=== PATIENT | male | born 1990 | race Hispanic/Latino ===

== ENCOUNTER 2016-09-05 21:54 | Observation (INO) | payer MEDICAID ==
[~2016-09-05] VITALS: Ht 185.4 cm; Wt 82.7 kg
--- NOTE | 2016-09-05 21:57 | ED.REPORT ---
HPI-Psychiatric Illness Date of Service Sep 05, 2016 ED Provider: Dr. Marcell Ramirez M.D. The patient is a 24 year old male with a history of psychosis and seizures who presents to the ED via EMS after being found confused at the train station just prior to arrival. The patient admits to taking "too many drugs" tonight, including Zyprexa and Vicodin. He has now reportedly lost all of his psychiatric medications. EMS found the patient with a BP of 160/100 and otherwise normal vital signs. The patient requests to be taken to a psychiatric hospital or "his doctor," who he cannot name. He is from [place] but does not know which town. The patient denies shortness of breath, auditory hallucinations, or other somatic symptoms. He has had similar episodes of confusion in the past. History is limited due to patient's confusion. Nursing Notes Stated Complaint: CONFUSION Chief Complaint: Psychiatric Complaint Nursing Notes Reviewed: Yes Allergies: Coded Allergies: No Known Allergies (Unverified , 09/05/16) General Time Seen by MD: 21:57 Chief Complaint Confused Hx Obtained From: Patient, EMS Unable to Obtain Hx: Patient condition, Mental status Arrived By: Ambulance Onset Occurred: Onset unknown (Found just prior to arrival) Symptom Duration: Since onset Severity: Current: No pain currently Severity: Maximum: No pain Pertinent Negative: Relieved by nothing Immunizations: Unknown Similar Sx Previous: Yes Risk-Psychiatric Illness Suicide Risk Stratification RF Statements: Risk factors reviewed Past Medical History Past Medical History Seizures Past Surgical History None reported Smoking History Light Tobacco Smoker Ambulatory Status Independent Review of Systems Unable to Obtain ROS Patient condition, Mental status Physical Exam Initial Vital Signs Vital Signs (First) Date Time Temp Pulse Resp B/P Pulse Ox O2 Delivery O2 Flow Rate FiO2 09/05/16 22:12 36.8 73 16 137/92 100 Room Air Initial VS: Reviewed ENT: Conjunctiva normal, No scleral icterus Neck: Supple, Full range of motion Respiratory: Breath sounds normal, Clear to auscultation, No respiratory distress Cardiovascular: Regular rate & rhythm, Heart sounds normal Skin: Warm, Dry, No cyanosis General/Constitutional: Awake, Alert, No acute distress Alertness: Positive: Confused Neurologic: Speech NL, No motor deficits, No sensory deficits Mental Status: Positive: Confused Psychiatric: Affect NL, Mood NL, No hallucinations Head / Eyes: Atraumatic, Normocephalic, PERRL (4mm bilaterally), EOMI Interpretation & Diagnostics URINE DRUG SCREEN: + Marijuana Otherwise Negative Lab Results Interpretation Result Diagram: 09/05/16223409/05/162234 Test 09/05/16 22:35 White Blood Count 5.6th/mm3 (3.8-10.1) Red Blood Count 4.76mil/mm3 (4.40-5.80) Hemoglobin 14.5g/dL (13.8-17.2) Hematocrit 42.9% (41.0-50.0) Mean Corpuscular Volume 90.1fL (81-100) Mean Corpuscular Hemoglobin 30.5pg (27.0-35.0) Mean Corpuscular Hemoglobin Concent 33.8% (32.0-37.0) Red Cell Distribution Width 12.6% (12.3-15.4) Platelet Count 246bil/L (150-400) Sodium Level 140mEq/L (134-144) Potassium Level 4.2mEq/L (3.5-5.2) Chloride Level 101mEq/L (97-108) Carbon Dioxide Level 24mmol/L (18-29) Blood Urea Nitrogen 18mg/dL (6-20) Creatinine 0.92mg/dL (0.76-1.27) Estimat Glomerular Filtration Rate 108mL/min (>59) Glucose Level 109mg/dL (60-99) Calcium Level 9.1mg/dL (8.5-10.1) Total Bilirubin 0.9mg/dL (0.0-1.2) Aspartate Amino Transf (AST/SGOT) 22U/L (0-50) Alanine Aminotransferase (ALT/SGPT) 15U/L (0-44) Alkaline Phosphatase 102U/L (25-150) Total Protein 7.2g/dL (6.4-8.4) Albumin 4.7g/dL (3.4-5.0) Hold [place] Top Tube Received (Received) Salicylates Level < 3.0ug/mL (30-250) Acetaminophen Level < 15.0ug/mL Rx (10-25) CT Head Interpretation CONCLUSION: Mild soft tissue swelling overlying the inferior right frontal bone. No skull fracture or acute intracranial hemorrhage. Report transmitted to the ED by radiologist Henok Rodgers M.D. at 09/05/16 - 10:58:16 PM PDT Study: Head CT no contrast Interpretation / Wet Read by: Interpret - Radiologist Re-Eval/Medical Decision Med Decision/Clinical Course 23-year-old presents initially in a confusional state it appears consistent with a postictal confusion. However he is overtly psychotic as well. He states an expectation of being admitted to the psychiatric hospital, and provided "cookies". He is here voluntarily and will be evaluated this morning by director of social services. Provided with Keppra 1 g orally to be continued. Provided with Risperdal for his apparent auditory hallucinations. Signed out at [address] Kaminski Re-Evaluation/Progress : Time of Eval: 01:45 Patient Status: Condition improved Re-Evaluation/Progress Note: Discussed with patient CT and lab results, diagnosis, and plan for transfer of care to Dr. Kaminski at change of shift for Social Work evaluation in the morning. He agrees with plan for care and all questions were addressed. Counseled Regarding: Diagnosis, Lab results Discharge & Departure Shift Change Sign-Out Patient Care Transferred: Yes (Dr. Kaminski) Discussed Complaint(s): Yes Laboratory Evaluation: Lab evaluation discussed Imaging Studies: Imaging discussed Response to Therapy: Improved Impression: Primary Impression: Psychosis Psychosis type: unspecified psychosis type Qualified Code: F29 - Unspecified psychosis not due to a substance or known physiological condition Additional Impression: Post-ictal confusion Care Transferred to: Dr. Kaminski Care Transferred at: 06:00 Yann Attestation Portions of this note were transcribed by Rose Mary Toscano. I, Dr. Ramirez, personally performed the history, physical exam, and medical decision-making; I reviewed and confirmed the accuracy of the information in the transcribed note. Signed by: Yann Vargas, 09/06/2016, 05:57 Marcell Ramirez MD Sep 05, 2016 21:57 ROSE MARY TOSCANO Sep 05, 2016 22:06
[2016-09-05 22:12] VITALS: BP 137/92; PULSE 73; RESP 16; O2SAT 100
[2016-09-05 22:53] LABS: Mean Corpuscular Hemoglobin 30.5 pg (27.0-35.0); Mean Corpuscular Volume 90.1 fL (81-100)
[2016-09-06] VITALS (7 sets, daily range): BP systolic 99–119; BP diastolic 46–63; PULSE 66–83; RESP 16–20; O2SAT 95–99
[2016-09-06] MEDS ORDERED: levETIRAcetam 500 mg Tablet PO ONE ×2 (01:55→07:55)
[2016-09-06] MEDS ORDERED: risperiDONE 1 mg Tablet PO ONE (01:55)
--- NOTE | 2016-09-06 06:12 | DRSVH ---
PROCEDURE: CT BRAIN WITHOUT CONTRAST ([id number]) INDICATIONS: 24-year-old male with headaches and possible seizure after head trauma. TECHNIQUE: Noncontrast 4.5 mm thick angled axial sections acquired from the foramen magnum to the vertex, with c oronal reformats. COMPARISON: None. FINDINGS: Preliminary interpretation rendered by [facility]. Image quality: Excellent. CSF spaces: Basal cisterns are patent. No extra-axial fluid collections. Ventricles are normal in size and shape. Brain: No midline shift. No intracranial masses or hemorrhage. Ruvalcaba-white matter interface is norm al. Skull and face: Calvarium and visualized facial bones are intact, without suspicious lesions. There is localized right forehead scalp soft tissue swelling. Sinuses: Visualized sinuses and mastoids are clear, except for posterior right maxillary sinus small mucous retention cyst or polyp. IMPRESSION: No acute intracranial abnormalities. Small right forehead scalp hematoma. No significant discrepancy with preliminary [facility] report. Dictated by: Indio Mascorro M.D. on 09/06/2016 at 6:07 Approved by: Indio Mascorro M.D. on 09/06/2016 at 6:11
[2016-09-06] MEDS ORDERED: levETIRAcetam 500 mg Tablet PO SCH (08:30)
[2016-09-06] MEDS: 0.9% Sodium Chloride 1,000 ML IV SCH (16:06)
[2016-09-06] MEDS ORDERED: Alum-Mag Hydrox-Simeth 30 mL Suspension PO PRN (16:10)
[2016-09-06] MEDS ORDERED: Ondansetron 2 mg/mL 2 mL Inj IVPUSH PRN (16:10)
[2016-09-06] MEDS ORDERED: Polyethylene Glycol (PEG) 17 Gm Powder PO PRN (16:10)
--- NOTE | 2016-09-06 18:21 | PCM.HPMED ---
Subjective Date of Service Sep 06, 2016 Primary Provider: Admitting Physician: Marcell Carver MD Primary Care Physician: Luke Attending Physician: Marcell Carver MD Admit Status: Admit to [place] Team Chief Complaint: Confusion History of Present Illness: The patient is a 26-year-old male who has a history of a psychiatric illness of some sort, he has been unable to reveal what his diagnosis is, left his family in [place] to travel to [place] for a new job. His family in [place] was perfectly okay with this plan. The patient set off on a train to [place], [place] and was planning to fly from the [employer] airport in [place], [place] to [place]. However, patient apparently was found to be behaving in a bizarre fashion at the [place] [facility].. Patient was therefore brought to [facility] where he was evaluated and then subsequently released. 2 days later patient was found at a train station in [place]. Patient was found confused at the train station and was brought to [facility] emergency room. Patient was evaluated by Dr. Marcell Ramirez. Patient admitted to "too many drugs" tonight. Which included Zyprexa and Vicodin. Patient reported that he lost all the psychiatric medications the patient was found to have a blood pressure 160/100 by EMS services. The patient requested to be taken to a psychiatric hospital or "his doctor" who he was unable to name. He was from [place] but did not know what city he was from. Patient reported similar confusion in the past. Patient is deemed to be unsafe to be discharged from the emergency room and is being brought in under observation to the hospital service for further evaluation and treatment Review of Systems: The patient would not answer any of my questions. He did follow commands however again did not answer any questions verbally and therefore review of systems could not be obtained. Allergies Coded Allergies: No Known Allergies (Unverified , 09/05/16) Home Medications Patient has apparently taken Zyprexa and Vicodin in the past according to the emergency room records. PMH Patient is nonverbal to me however from the emergency room records it appears that the patient has a psychiatric disorder diagnosis and/or type is unknown. Surgical History I am unable to obtain surgical history from the patient. This is due to the patient being nonverbal during my exam. Family History I am unable to obtain a family history from this patient is a patient is nonverbal. Social History Hx Substance Use: Yes (marijuana) Smoking Status: Light Tobacco Smoker Living Arrangement: Alone Exam Vital Signs Vital Sign - Last Date Time Temp Pulse Resp B/P Pulse Ox O2 Delivery O2 Flow Rate FiO2 09/06/16 16:50 36.8 09/06/16 15:13 75 20 109/48 98 Room Air Intake and Output 09/05/16 09/05/16 09/06/16 Cumulative From/Thru 15:00 23:00 07:00 09/05/16 21:57 - 09/06/16 02:47 Intake Total 100 ml 100 ml Balance 100 ml 100 ml Intake Oral 100 ml 100 ml Exam General: Patient is nonverbal however he does follow simple commands. He is lying in the position, he is cooperative. HEENT: Head is atraumatic and normocephalic. Eyes: Pupils are equally round, small to pinpoint, however are reactive to light and accommodation. Extraocular muscles are intact. Sclera are white, anicteric. Subconjunctival mucosa is pink. Ears and nose are unremarkable. Oropharynx: There are no mucosal lesions, there is no thrush, there is no pharyngitis. Neck: Is supple, there are no nodes, or masses or tenderness. Chest: Is clear to auscultation and percussion. There are no rales, rhonchi, wheezes or rubs. Heart: Rate, rhythm is regular. There is no murmur, rub or gallop. Abdomen: Good bowel sounds are present. Abdomen is soft, nontender, no organomegaly or masses were appreciated. Extremities: Are symmetrical and well perfused. There is no edema, there is no cellulitis, no rash. Neurologic: The patient is minimally responsive and is not verbal to me. He is somnolent. However, he is cooperative on exam there are no focal neurological deficits noted. Cranial nerves II through XII are intact. There are no sensory or motor deficits noted. Psychiatric: Patients mood is calm and shows no sign of agitation. Genital: Deferred Rectal: Deferred Lab and Diagnostics Result Diagram: 09/05/16223409/05/162234 X-Rays, CTs and MRIs PROCEDURE: CT BRAIN WITHOUT CONTRAST ([id number]) INDICATIONS: 24-year-old male with headaches and possible seizure after head trauma. TECHNIQUE: Noncontrast 4.5 mm thick angled axial sections acquired from the foramen magnum to the vertex, with coronal reformats. COMPARISON: None. FINDINGS: Preliminary interpretation rendered by [facility]. Image quality: Excellent. CSF spaces: Basal cisterns are patent. No extra-axial fluid collections. Ventricles are normal in size and shape. Brain: No midline shift. No intracranial masses or hemorrhage. Ru[place]caba-white matter interface is normal. Skull and face: Calvarium and visualized facial bones are intact, without suspicious lesions. There is localized right forehead scalp soft tissue swelling. Sinuses: Visualized sinuses and mastoids are clear, except for posterior right maxillary sinus small mucous retention cyst or polyp. IMPRESSION: No acute intracranial abnormalities. Small right forehead scalp hematoma. No significant discrepancy with preliminary [facility] report. Dictated by: Indio Mascorro M.D. on 09/06/2016 at 6:07 Approved by: Indio Mascorro M.D. on 09/06/2016 at 6:11 Assessment & Plan The patient is a 26-year-old male who has a history of a psychiatric illness of some sort, he has been unable to reveal what his diagnosis is, left his family in [place] to travel to [place] for a new job. His family in [place] was perfectly okay with this plan. The patient set off on a train to [place], [place] and was planning to fly from the [place] airport in [place], [place] to [place]. However, patient apparently was found to be behaving in a bizarre fashion at the [place] [facility].. Patient was therefore brought to [facility] where he was evaluated and then subsequently released. 2 days later patient was found at a train station in [place]. Patient was found confused at the train station and was brought to [facility] emergency room. Patient was evaluated by Dr. Marcell Ramirez. Patient admitted to "too many drugs" tonight. Which included Zyprexa and Vicodin. Patient reported that he lost all the psychiatric medications the patient was found to have a blood pressure 160/100 by EMS services. The patient requested to be taken to a psychiatric hospital or "his doctor" who he was unable to name. He was from [place] but did not know what city he was from. Patient reported similar confusion in the past. Patient is deemed to be unsafe to be discharged from the emergency room and is being brought in under observation to the hospital service for further evaluation and treatment. # Acute encephalopathy, present at time of admission. Active - According to the emergency room staff contacted the patient's family in [place] the patient baseline behavior is nothing like it is now and this behavior that is exhibiting now is all new. The patient does have a history of psychiatric disorder and takes Zyprexa but apparently is well controlled and they confirmed that he was headed to [place] for work. - Rule out herpes simplex encephalitis. I have asked the emergency room physician to perform a lumbar puncture. - Rule out toxic metabolic encephalopathy - Rule out side effects medications and/or drugs that the patient took prior to admission. However, according to Dr. Marcell Raimrez's note the urine drug screen is only positive for cannabinoids. We will repeat this. - Rule out other # History of psychiatric disorder, present at time of admission. Active - Patient reportedly takes Zyprexa at home. However, related to the emergency room staff that he has been out of his home medications for quite some time. - We will obtain psychiatric consult. Dr. Marc Kaminski apparently spoke to the psychiatrist on-call and psychiatric consult is pending. # Possible history of seizure disorder, present at the time of admission. Active - Patient was given Keppra 1000 mg IV loading dose in the emergency room followed by a 500 mg by mouth dose. - We will continue Keppra 500 mg by mouth twice a day - We will check an MRI of the brain - We will check an EEG of the brain Disposition: As definitive diagnosis is uncertain for this patient will be brought in under observation for now. Pain Evaluation: Adequate Pain Control GI Prophylaxis: Not indicated VTE Prophylaxis: Sub-Q Enoxaparin Resuscitation Status: CPR: Attempt Resuscitation Marcell Carver MD Sep 06, 2016 18:21
--- NOTE | 2016-09-06 20:25 | NUR ---
Admit Pt arrived in room on stretcher from ED with all belongings. Pt alert and oriented, walked from stretcher to bed. Pt sensitive to light, complaining of headache. Tylenol given with good results, pain at 10 down to 5. Pt refused Lovenox injection, was hungry and had a snack. Initially refused fluids, but after snack complied. Pt pleasant and generally cooperative.
[2016-09-06] MEDS: levETIRAcetam 500 mg Tablet PO SCH (20:31)
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
--- NOTE | 2016-09-06 21:45 | NUR ---
Tele Tele monitor showed slight ST elevation. Pt denied any chest pain or SOB, alert and oriented. Vitals within normal range, no s/s of discomfort. Paged night hospitalist with information, will continue to monitor.
[2016-09-07] VITALS (7 sets, daily range): BP systolic 108–141; BP diastolic 66–103; PULSE 56–77; RESP 16–22; O2SAT 89–98
[2016-09-07] MEDS: 0.9% Sodium Chloride 1,000 ML IV SCH ×4 (02:06→15:28)
[2016-09-07 06:15] LABS: BASOPHILS % (AUTO) 0.4 % (0-3); EOSINOPHILS % (AUTO) 9.6 % (0-5); MONOCYTES % (AUTO) 8.8 % (4-12); Mean Corpuscular Hemoglobin 30.3 pg (27.0-35.0); Mean Corpuscular Volume 90.7 fL (81-100); Platelet Count 230 bil/L (150-400)
--- NOTE | 2016-09-07 06:29 | NUR ---
activity Pt slept well through the night, was alert when awakened for BP. Awoke hungry this am, pleasant and cooperative. Family will be up from [place] this am. They are hoping to take him home. Sister called to discuss pt mental issues, she wanted the to know that he has been paranoid and fearful at home. Will continue to observe behaviors. No issues at this time.
[2016-09-07 06:37] LABS: Magnesium 1.7 mg/dL (1.6-2.6)
[2016-09-07] MEDS: levETIRAcetam 500 mg Tablet PO SCH ×2 (08:56→20:13)
--- NOTE | 2016-09-07 11:33 | NUR ---
Social Work: Screening / Readiness for d/c Data: Pt is a 26 y/o male admitted for acute delerium. Pt's PCP is not listed, pt's insurance is listed as self pay. EMR reviewed, pt discussed in rounds. MD states Psych will see pt again today and that pt may be ready medically for d/c tomorrow. Per Psych note on 09/06, pt may require a DMHP on day of d/c. MARKETING SUPPORT COORDINATOR will continue to follow. Assessment: Pt with hx of psych. Plan: MD states pt likely ready for d/c tomorrow, MARKETING SUPPORT COORDINATOR will continue to follow regarding need for DMHP at d/c. MARKETING SUPPORT COORDINATOR will continue to follow. MUKESH Moseley
--- NOTE | 2016-09-07 11:35 | NUR ---
ST received order for a swallow evaluation at time of pt admit. However, MD gave verbal order to this PRINCIPAL INVESTIGATOR to cancel the order. Please reorder if the pt develops new or worsening symptoms.
--- NOTE | 2016-09-07 13:04 | DRSVH ---
PROCEDURE: MRI SEIZURE BRAIN WITH AND WITHOUT CONTRAST ([id number]) INDICATIONS: Encephalopathy/Seizure TECHNIQUE: Noncontrast axial T1 spin echo, axial T2 fast spin echo, sagittal and axial FLAIR, axial gradient ech o, axial diffusion and ADC, coronal thin-slice T2 FSE through the brain. Optional contrast, followed by axial and coronal 3D VIBE or T1 spin echo with fat saturation sequences through the brain. COMPARISON: [facility], CT, CT BRAIN WO CON, 09/05/2016, 22:44. FINDINGS: Image quality: Partially degraded by motion artifact. CSF spaces: Ventricles are normal in size and shape. Basal cisterns are patent. No extra-axial flu id collections. Brain: No intracranial bleeds or mass effects. No abnormal intracranial enhancement. Ruvalcaba-white ma tter interface appears intact. Diffusion weighted images demonstrate no acute ischemic insults. Bra instem appear normal. Normal intravascular flow voids are present. The hippocampal regions appear n ormal and symmetric in morphology. Skull and face: Calvarial marrow signal is normal. Orbits appear normal. Sinuses: Mild maxillary sinus mucosal thickening is present bilaterally. Sinuses and mastoids are ot herwise clear. IMPRESSION: No acute process. No explanation for seizure. Dictated by: Eduardo Medina M.D. on 09/07/2016 at 12:02 Approved by: Eduardo Medina M.D. on 09/07/2016 at 12:03
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
--- NOTE | 2016-09-07 15:23 | NUR ---
Mentation Admitted with delirium. Confusion at times otherwise oriented and appropriate this shift. Family present this AM and met with providers on care team. Comfortable with plan of care at this time. Steady on feet and using Br independently.
[2016-09-07] MEDS ORDERED: OLAN2.5T3 PO (16:50)
[2016-09-07] MEDS ORDERED: KEP500TA PO (16:50)
[2016-09-07] MEDS ORDERED: HAL05 PO (16:50)
[2016-09-07] MEDS ORDERED: AMPH30CA5 PO (16:50)
[2016-09-07] MEDS ORDERED: MULT1CAP33 PO (16:50)
[2016-09-07] MEDS ORDERED: ALPRAZolam 0.5 mg Tablet PO PRN (17:15)
--- NOTE | 2016-09-07 18:29 | NUR ---
med rec med rec completed using pt recall however pt unsure of dosages and hasn't taken any in quite awhile.
--- NOTE | 2016-09-07 23:25 | NUR ---
activity Pt alert and oriented, cooperative, walked about the facility staying on this floor with no issues. Remained in room after, contacted some friends by phone. Resting comfortably in bed for the rest of evening. Will continue to monitor.
[2016-09-08] MEDS: Sodium Chloride LOK Flush 10 mL Syringe IVFLUSH SCH ×3 (00:40→16:30)
[2016-09-08 06:15] VITALS: BP 105/65; PULSE 68; RESP 20; O2SAT 97
[2016-09-08] MEDS: levETIRAcetam 500 mg Tablet PO SCH ×2 (07:50→20:39)
--- NOTE | 2016-09-08 13:30 | NUR ---
Mentation NOC RN reporting that overnight patient expressed that he had been traveling to [place] before hospitalization. Pt was sleepy at this AM and gave an incorrect date (1982) to the instructor adjunct pharmacy technician. Pt also asked to make a long distance phone call and was allowed to call from the hallway phones. After approx 20 mins the patient was observed doing more dialing than talking and was asked to stop making calls at that time.
[2016-09-08 15:25] VITALS: BP 129/81; PULSE 67; RESP 18; O2SAT 98
--- NOTE | 2016-09-08 16:17 | NUR ---
Social Work-readiness for discharge: data:EMR Reviewed. Pt is on day 2 of hospitalization for acute delerium per H&P. Pt is not medically stable for discharge anticipate tomorrow. Psychiatry has seen pt today and states pt does not qualify for DMHP or voluntary placement. Psychiatry states pt is cleared to go home. spoke with sister who is planning on flying up likely tomorrow to pick pt up to take him back home. SW will continue to follow. Assessment:pt who is independent at baseline. Plan:Pt to likely discharge home with sister when medically tsable. Psychiatry does not feel that pt qualifies for DMHP or voluntary placement. SW will continue to follow. MUKESH Hoffman
--- NOTE | 2016-09-08 17:20 | NUR ---
Cedricvenu Pt requesting to leave AMA and is oriented at this time. Pepito returned from safe. Patient then talked with his sister over the phone multiple times. When this RN asked about his AMA status the patient pulled out his own IV "because it hurt" and "I pulled it out in the shower" while informing me that "if they find me a ticket tonight I will go but if it isn't until tomorrow that I will leave then."
[2016-09-08 20:36] VITALS: BP 117/80; PULSE 76; RESP 16; O2SAT 97
--- NOTE | 2016-09-08 22:57 | PCM.PNPSY ---
Subjective Date of Service Sep 08, 2016 Subjective Per nursing staff, patient still somewhat disoriented this morning and pressing numbers on phone purposelessly. This afternoon, patient more alert, but still has somewhat euphoric expression on his face. He reports that his is 1990. He states that he is in a hospital near [place]. He reports that other than a bad headache, he feels fine today. He reports having 5 brothers and 4 sisters and a daughter, Carla, age 6. He stated that the hallucinations had resolved. He reported that he did not like the olanzapine or haloperidol that he had been on and did not want anything similar. He declined inpatient psychiatric treatment. He indicated that he planned to return to [place] with family and then potentially go to [place] for fishing as he had previously stated. Sleep: good Appetite: good Suicidal and homicidal ideation: denies Auditory hallucinations: denies Visual hallucinations: denies Other Psychotic Symptoms: mild thought disorganization Current Medications Current Medications Alprazolam 0.5 mg TID PRN PO Last administered on 09/08/16 14:10; Admin Dose 0.5 MG; Start 09/07/16 at 17:15 Cyanocobalamin 1,000 mcg DAILY PO Last administered on 09/08/16 07:50; Admin Dose 1,000 MCG; Start 09/07/16 at 08:30 Folic Acid 1 mg DAILY PO Last administered on 09/08/16 07:50; Admin Dose 1 MG; Start 09/07/16 at 08:30 Multivitamins/ Minerals Therapeutic 1 tablet DAILY PO Last administered on 07:50; Admin Dose 1 TABLET; Start 09/07/16 at 08:30 Sodium Chloride 10 ml LAUREANO IVFLUSH Last administered on 09/08/16 00:40; Admin Dose 10 ML; Start 09/08/16 at 00:30 Thiamine HCl 100 mg DAILY PO Last administered on 09/08/16 07:50; Admin Dose 100 MG; Start 09/07/16 at 08:30 Mental Status Exam Vital Signs Vital Signs Date Time Temp Pulse Resp B/P Pulse Ox O2 Delivery O2 Flow Rate FiO2 09/08/16 20:36 36.6 76 16 117/80 97 Room Air 09/08/16 15:25 36.9 67 18 129/81 98 Room Air Appearance: Neat/well groomed Attitude: Pleasant, Cooperative Behavior: Other (smiling almost continuously) Affect: Other (inappropriately bright) Mood: Euthymic (to almost), Euphoric (at times) Thought Process/Associations: Goal Directed Speech Production: Normal Speech Rate: Normal Speech Articulation: Normal Thought Content: Appropriate Danger to Self/Suicidal Ideati: None Danger to Others: None Hallucinations: Auditory (Denies), Visual (Denies) Consciousness: Alert Orientation: Person, Place, Date, Situation Memory: Grossly Intact, Nursing Home Memory Estimate Intellectual Function: Average Basis for IQ estimate: Word use/vocabulary, Educational history Attention/Concentration & Cogn: Impaired Cognitive Testing Method: Serial computations, Spelling forward & backward Insight: Limited Judgement: Poor Result Diagram: 09/07/1652909/07/16529 Mental Health Plan The patient is a 26-year-old male with a reported history of substance use who presents with altered mental status, apparently evolving over the last couple of days prior to admission. Yesterday, the patient was unable to answer questions in a meaningful way. Today he is able to participate better with the interview but is presenting with significant memory loss and inability to remember such things as the number of brothers and sisters he has, that he has a daughter, the year, the president, etc. He also presents with a history of paranoia per family and her self report of auditory hallucinations this morning per the patient. The family notes a decrease overall in his paranoia which is unusual for the patient. The patient adamantly denies using "Sherm" or other forms of adulterated marijuana or tobacco. He denies other substance use. The patient declined the lumbar puncture and will defer to medical whether this is required for diagnostic purposes. The MRI was essentially normal, but the EEG is still pending. B12 and folate levels are also still pending. The patient is currently denying homicidal or suicidal ideation, is oriented, and is declining antipsychotic/psychotropic medication and psychiatric admission. He does not appear to meet criteria at the time of assessment this afternoon at approximately 4pm. [place] Y[place] I. 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 Marijuana use disorder Methamphetamine use disorder, in early remission, by patient report. [place] II. Deferred. [place] III. History of seizure disorder following closed head injury. Delirium of unknown origin/toxic encephalopathy. [place] IV. Unknown. [place] V. Global Assessment of Functioning 40. Treatments 1. The patient has been admitted to the medical service for assessment and treatment. 2. MRI of the brain and EEG have both been ordered, MRI results unremarkable. 3. B12 and folate labs drawn and pending. 4. TSH within normal limits. 5. The patient declined lumbar puncture yesterday. No acute findings on MRI. 6. The patient has been already placed on vitamin replacement therapy. 7. The patient was placed on Keppra 500 mg twice daily for seizure prophylaxis. 8. The patient is currently declining psychotropic medications; however, he has accepted alprazolam although longer acting agent such as clonazepam may be more helpful 9. At present, the patient does not appear to meet criteria for referral to [facility] and is agreeing to stay overnight and coordinate return to [place] with family. Should the patient's behavior change, [facility] should be contacted regarding DMHP referral given his bizarre behavior prior to admission and his limited current insight. 10. The patient is currently declining psychiatric treatment or medications and appears to be clearing cognitively. 11. Appreciate the opportunity to consult on this patient, please contact psychiatry for further questions. James Ivan MD Sep 08, 2016 22:57 option for IM backup. 9. Should the patient demand discharge, the DMHP should be called given his bizarre behavior prior to admission and current difficulty with memory and cognition. 10. The patient's family expressed concern about taking patient home with them as they have to return to [place] by tomorrow. They were advised that the patient's medical workup should be completed and his cognition should clear prior to taking a car to [place] which could result in the patient trying to elope from the vehicle resulting in further injury. 11. Should the medical workup proved to be negative, the patient does have a history of psychotic thought processes per family and would likely benefit from routine antipsychotic medication such as risperidone and he may be appropriate for transfer to the psychiatric unit once medically stable and agreeable to said treatment. 12. Appreciate the opportunity to consult on this patient, please contact psychiatry for further questions. James Ivan MD Sep 08, 2016 22:57
--- NOTE | 2016-09-08 23:20 | PCM.PNMED ---
Subjective Date of Service Sep 08, 2016 Subjective PAtient is better today, still getting birthdays date wrong, tried to talk on phone all day with family and friends. Wants to take a train and go home to be close to family. Called his sister, who says they want to fly down here to get him, they do not want him to go by a train. Patient asked if he could go today, Dr. Ivan and I informed him it would be in his best interest to wait till tomorrow to be medically cleared. Asked for a letter of excuse to be written to disability attorney, public defendant in [place]. PAtient states he could go very long periods of time between drug abuse in the past. Exam Vital Signs Vital Sign - Last Date Time Temp Pulse Resp B/P Pulse Ox O2 Delivery O2 Flow Rate FiO2 09/08/16 06:15 36.6 68 20 105/65 97 Room Air 09/07/16 04:02 1.00 Intake and Output 09/07/16 09/07/16 09/08/16 Cumulative From/Thru 15:00 23:00 07:00 09/05/16 21:57 - 09/08/16 06:22 Intake Total 2074 ml 1500 ml 4750 ml Output Total 200 ml 1075 ml Balance 1874 ml 1500 ml 3675 ml Intake Oral 2074 ml 1500 ml 3949 ml IV Total 801 ml Output Urine Total 200 ml 1075 ml # Voids 1 1 2 # Bowel Movements 0 Exam General: Patient alert and oriented 3, he is cooperative. HEENT: Head is atraumatic and normocephalic. Extraocular muscles are intact. Sclera are white, anicteric. Subconjunctival mucosa is pink. Ears and nose are unremarkable. . Chest: Is clear to auscultatio. There are no rales, rhonchi, wheezes or rubs. Heart: Rate, rhythm is regular. There is no murmur, rub or gallop. Abdomen: non distended Extremities: Are symmetrical and well perfused. There is no edema, there is no cellulitis, no rash. Neurologic: Alert and oriented 3. There are no sensory or motor deficits noted. Psychiatric: Patients mood is calm and shows no sign of agitation. IVs and Medications IV Fluids none Medications Reviewed: Medications were reviewed in detail Lab and Diagnostics Result Diagram: 09/07/1652909/07/16529 Microbiology PROCEDURE: MRI SEIZURE BRAIN WITH AND WITHOUT CONTRAST ([id number]) INDICATIONS: Encephalopathy/Seizure TECHNIQUE: Noncontrast axial T1 spin echo, axial T2 fast spin echo, sagittal and axial FLAIR, axial gradient echo, axial diffusion and ADC, coronal thin-slice T2 FSE through the brain. Optional contrast, followed by axial and coronal 3D VIBE or T1 spin echo with fat saturation sequences through the brain. COMPARISON: [facility], CT, CT BRAIN WO CON, 09/05/2016, 22:44. FINDINGS: Image quality: Partially degraded by motion artifact. CSF spaces: Ventricles are normal in size and shape. Basal cisterns are patent. No extra-axial fluid collections. Brain: No intracranial bleeds or mass effects. No abnormal intracranial enhancement. Ruvalcaba-white matter interface appears intact. Diffusion weighted images demonstrate no acute ischemic insults. Brainstem appear normal. Normal intravascular flow voids are present. The hippocampal regions appear normal and symmetric in morphology. Skull and face: Calvarial marrow signal is normal. Orbits appear normal. Sinuses: Mild maxillary sinus mucosal thickening is present bilaterally. Sinuses and mastoids are otherwise clear. IMPRESSION: No acute process. No explanation for seizure. Dictated by: Eduardo Medina M.D. on 09/07/2016 at 12:02 X-Rays, CTs and MRIs PROCEDURE: CT BRAIN WITHOUT CONTRAST ([id number]) INDICATIONS: 24-year-old male with headaches and possible seizure after head trauma. TECHNIQUE: Noncontrast 4.5 mm thick angled axial sections acquired from the foramen magnum to the vertex, with coronal reformats. COMPARISON: None. FINDINGS: Preliminary interpretation rendered by [facility]. Image quality: Excellent. CSF spaces: Basal cisterns are patent. No extra-axial fluid collections. Ventricles are normal in size and shape. Brain: No midline shift. No intracranial masses or hemorrhage. Ruvalcaba-white matter interface is normal. Skull and face: Calvarium and visualized facial bones are intact, without suspicious lesions. There is localized right forehead scalp soft tissue swelling. Sinuses: Visualized sinuses and mastoids are clear, except for posterior right maxillary sinus small mucous retention cyst or polyp. IMPRESSION: No acute intracranial abnormalities. Small right forehead scalp hematoma. No significant discrepancy with preliminary [facility] report. Dictated by: Indio Mascorro M.D. on 09/06/2016 at 6:07 Approved by: Indio Mascorro M.D. on 09/06/2016 at 6:11 Assessment & Plan The patient is a 26-year-old male who has a history of a psychiatric illness of some sort, he has been unable to reveal what his diagnosis is, left his family in [place] to travel to [place] for a new job. His family in [place] was perfectly okay with this plan. The patient set off on a train to [place], [place] and was planning to fly from the [place] in [place], [place] to [place]. However, patient apparently was found to be behaving in a bizarre fashion at the [place] [facility].. Patient was therefore brought to [facility] where he was evaluated and then subsequently released. 2 days later patient was found at a train station in [place]. Patient was found confused at the train station and was brought to [facility] emergency room. Patient was evaluated by Dr. Marcell Ramirez. Patient admitted to "too many drugs" tonight. Which included Zyprexa and Vicodin. Patient reported that he lost all the psychiatric medications the patient was found to have a blood pressure 160/100 by EMS services. The patient requested to be taken to a psychiatric hospital or "his doctor" who he was unable to name. He was from [place] but did not know what city he was from. Patient reported similar confusion in the past. Patient is deemed to be unsafe to be discharged from the emergency room and is being brought in under observation to the hospital service for further evaluation and treatment. # Acute encephalopathy , present at time of admission. Improving -likely from unknown substance use or psychosis - According to sisters at bedside patient baseline behavior is nothing like it is now and this behavior that is exhibiting now is all new. The patient does have a history of psychiatric disorder and takes Zyprexa but apparently is well controlled and they confirmed that he was headed to [place] for work. -ED Initially planned to LP to rule out herpes simplex encephalitis. Patient refused lumbar puncture. -Likely toxic metabolic encephalopathy - ER urine drug screen is only positive for cannabinoids. Patient admits taking marijuana only. Denies taking any other drugs, possible he takes bath salts etc that may not show up in urine -Patient's mental status has much improved. -2 sisters and 2 [id number] arrived over the weekend from [place]. They initially wanted to take patient back to [place] today for psychiatric hospitalization to a facility he has been treated. Patient has no valid ID( ID ) and can't board flight.Dr Ivan advised against taking patient by car and he may try to escape from a moving car and get injured. Family agreed. They have to return back to [place] for work tomorrow . His sister Yris ( tel [phone]) wants to be updated daily and come back to pick him up once he is cleared. Called her on 09/08, no one answered, message box full, Called another sister who wanted to come pick him up upon d/c # History of psychiatric disorder, chronic Active - Patient states he used to take Zyprexa. Discontinued one year ago - psychiatric consult. -- Dr. Ivan is in to see pt. Feels pt improved but not enough for d/c # Possible history of seizure disorder, chronic. Active - Patient was given Keppra 1000 mg IV loading dose in the emergency room followed by a 500 mg by mouth dose. - We will continue Keppra 500 mg by mouth twice a day - We will check an MRI of the brain: NAD - We will check an EEG of the brain: result pending #Possible hx of ADHD chronic active -- Says he was on adderall until few years ago, stopped due to not wanting to go to clinic for refills # Right ankle pain -No sign of effusion, probably due to trauma Disposition: Possible d/c in the AM. If patient wants to leave AMA DMHP should be called GI Prophylaxis: Not indicated VTE Prophylaxis: Sub-Q Enoxaparin Resuscitation Status: CPR: Attempt Resuscitation Time spent 25 min Haily Oliveira DO Sep 08, 2016 07:08
[2016-09-09] MEDS: Sodium Chloride LOK Flush 10 mL Syringe IVFLUSH SCH ×2 (00:30→08:02)
--- NOTE | 2016-09-09 03:15 | NUR ---
NOC activity Pt states that he will just gonna wait for discharge in the morning. Denies pain, sob, n/v or abd discomfort. Pleasant and cooperative. Continuing to monitor.
[2016-09-09 05:00] VITALS: BP 118/75; PULSE 62; RESP 18; O2SAT 96
[2016-09-09] MEDS ORDERED: CLON0.5T PO (09:20)
[2016-09-09] MEDS ORDERED: KEP500TA PO (09:24)
--- NOTE | 2016-09-09 11:53 | NUR ---
Social Work-discharge: Data:EMR Reviewed. Pt is on day 3 of hospitalization for acute delerium per H&P. Pt is medically stable for discharge. Psychiatry has cleared pt for home and does not feel like pt meets criteria for DMHP or voluntary hospitalization. Pt's sister is having a friend pick pt up today from the hospital and take him back to [place] to flight home. All updated and agreeable to plan. Assessment:Pt who is independent at baseline. Plan:Pt to discharge home today via POV. Psychiatry has cleared pt for home and does not feel like pt meets criteria for DMHP or voluntary hospitalization. All updated and agreeable to plan. MUKESH Hoffman
[2016-09-09] MEDS: levETIRAcetam 500 mg Tablet PO SCH (12:05)
--- NOTE | 2016-09-09 13:09 | NUR ---
Discharge Pt requesting to leave. Discharge info, care notes and Rxs assembled into folder. Attempted to set up Rxs at [facility] pharmacy but pt does not have insurance info with him. Pt asked for information and directions to [facility], this RN provided printed walking directions and address. Allowed pt to make multiple phone calls from [facility] phone. This RN was attending another room and when returned could not locate patient in room or on floor. D/C packet not taken but printed info that was placed on top gone. Attempted to locate patient at main entrance and they were not found. Rxs destroyed. Addendum: 09/09/16 at 1321 by SIOMARA CLEMENTE RN Belongings returned from safe yesterday by this RN and no further belongings found in room.
--- NOTE | 2016-09-09 14:51 | PROCED ---
[address] [address] EEG PATIENT: LEIGH ANN EPPERSON : 1990 MR#: [id number] ADMIT: 09/06/2016 JOB ID: [id number] HISTORY: The patient is a 46-year-old man with altered mental status. TECHNICAL DESCRIPTION: This digital EEG was recorded using 25 scalp and ear, and two EKG electrodes. It was reviewed in bipolar and referential montages following reformatting in 10-20 [employer]. During the recording, the patient was noted to be awake, drowsy, and asleep. The background was composed of an 8-8.5 hertz, symmetrical and reactive posterior dominant rhythm that attenuated with eye opening. The rest of the background was composed of low voltage faster frequencies. There were no focal, lateralized, or epileptiform discharges noted. There were no seizures seen. There was myogenic and movement artifact throughout this recording as the patient was noted to be restless. Hyperventilation was performed for 3 minutes with fair effort, with no slowing of background rhythm noted or frontally predominant buildup noted. Photic stimulation from 1-30 hertz did not elicit any photic driving response. The EKG rhythm strip revealed a heart rate of 60-80 beats per minute with no apparent arrhythmias. IMPRESSION: This electroencephalogram performed in the awake, drowsy, and asleep states is within normal limits. Throughout this recording, the patient was noted to be restless when awake with some myogenic and movement artifact noted. There were no epileptiform abnormalities noted. There were no seizures. Clinical correlation is advised.
--- NOTE | 2016-09-13 05:53 | PCM.DIMED ---
Discharge Instructions Date of Service Sep 09, 2016 Dates of Hospitalization Sep 06, 2016 at 16:30 Discharge Diagnosis Discharge Diagnosis acute encephalopathy, psychotic disorder, seizure d/o Medication Instructions Additional med instructions Please take klonapin as prescribed for anxiety during your trip back home Diet Discharge Diet: No restrictions Activity Discharge Activity: No restrictions Call your provider Call your provider for: Fever or Chills, Shortness of breath, Bleeding, Chest pain, Vomitting, Excessive diarrhea, Weakness (unilateral), Other Patient Instructions Follow-up plan F/U with PCP in one week F/U with psych provider in 1-2 weeks Haily Oliveira DO Sep 09, 2016 09:22
--- NOTE | 2016-09-13 05:57 | PCM.DC.MED ---
Discharge Summary Date of Service Sep 09, 2016 Dates of Hospitalization Date of Hospital Admission Sep 06, 2016 at 16:30 Date of Discharge: Sep 09, 2016 Providers: Admitting Physician: Haily Cox DO Primary Care Physician: Luke Attending Physician: Haily Cox DO Diagnosis at Time of Discharge Diagnosis at Time of Discharge Acute encephalopathy due to psych d/o, seizure hx Consultations Psych Procedures XRay, CTs & MRIs PROCEDURE: CT BRAIN WITHOUT CONTRAST ([id number]) INDICATIONS: 24-year-old male with headaches and possible seizure after head trauma. TECHNIQUE: Noncontrast 4.5 mm thick angled axial sections acquired from the foramen magnum to the vertex, with coronal reformats. COMPARISON: None. FINDINGS: Preliminary interpretation rendered by [facility]. Image quality: Excellent. CSF spaces: Basal cisterns are patent. No extra-axial fluid collections. Ventricles are normal in size and shape. Brain: No midline shift. No intracranial masses or hemorrhage. Ruvalcaba-white matter interface is normal. Skull and face: Calvarium and visualized facial bones are intact, without suspicious lesions. There is localized right forehead scalp soft tissue swelling. Sinuses: Visualized sinuses and mastoids are clear, except for posterior right maxillary sinus small mucous retention cyst or polyp. IMPRESSION: No acute intracranial abnormalities. Small right forehead scalp hematoma. No significant discrepancy with preliminary [facility] report. Dictated by: Indio Mascorro M.D. on 09/06/2016 at 6:07 Approved by: Indio Mascorro M.D. on 09/06/2016 at 6:11 Brief History The patient is a 26-year-old male who has a history of a psychiatric illness of some sort, he has been unable to reveal what his diagnosis is, left his family in [place] to travel to [place] for a new job. His family in [place] was perfectly okay with this plan. The patient set off on a train to [place], [place] and was planning to fly from the [place] in [place], [place] to [place]. However, patient apparently was found to be behaving in a bizarre fashion at the [place] [facility].. Patient was therefore brought to [facility] where he was evaluated and then subsequently released. 2 days later patient was found at a train station in [place]. Patient was found confused at the train station and was brought to [facility] emergency room. Patient was evaluated by Dr. Marcell Ramirez. Patient admitted to "too many drugs" tonight. Which included Zyprexa and Vicodin. Patient reported that he lost all the psychiatric medications the patient was found to have a blood pressure 160/100 by EMS services. The patient requested to be taken to a psychiatric hospital or "his doctor" who he was unable to name. He was from [place] but did not know what city he was from. Patient reported similar confusion in the past. Patient is deemed to be unsafe to be discharged from the emergency room and is being brought in under observation to the hospital service for further evaluation and treatment Hospital Course The patient is a 26-year-old male who has a history of a psychiatric illness of some sort, he has been unable to reveal what his diagnosis is, left his family in [place] to travel to [place] for a new job. His family in [place] was perfectly okay with this plan. The patient set off on a train to [place], [place] and was planning to fly from the [place] in [place], [place] to [place]. However, patient apparently was found to be behaving in a bizarre fashion at the [place] [facility].. Patient was therefore brought to [facility] where he was evaluated and then subsequently released. 2 days later patient was found at a train station in [place]. Patient was found confused at the train station and was brought to [facility] emergency room. Patient was evaluated by Dr. Marcell Ramirez. Patient admitted to "too many drugs" tonight. Which included Zyprexa and Vicodin. Patient reported that he lost all the psychiatric medications the patient was found to have a blood pressure 160/100 by EMS services. The patient requested to be taken to a psychiatric hospital or "his doctor" who he was unable to name. He was from [place] but did not know what city he was from. Patient reported similar confusion in the past. Patient is deemed to be unsafe to be discharged from the emergency room and is being brought in under observation to the hospital service for further evaluation and treatment. # Acute encephalopathy , present at time of admission. Improving -likely from unknown substance use or psychosis - According to sisters at bedside patient baseline behavior is nothing like it is now and this behavior that is exhibiting now is all new. The patient does have a history of psychiatric disorder and takes Zyprexa but apparently is well controlled and they confirmed that he was headed to [place] for work. -ED Initially planned to LP to rule out herpes simplex encephalitis. Patient refused lumbar puncture. -Likely toxic metabolic encephalopathy - ER urine drug screen is only positive for cannabinoids. Patient admits taking marijuana only. Denies taking any other drugs, possible he takes bath salts etc that may not show up in urine -Patient's mental status has much improved. -2 sisters and 2 [id number] arrived over the weekend from [place]. They initially wanted to take patient back to [place] today for psychiatric hospitalization to a facility he has been treated. Patient has no valid ID( ID ) and can't board flight.Dr Ivan advised against taking patient by car and he may try to escape from a moving car and get injured. Family agreed. They have to return back to [place] for work over the week days . His sister Yris ( tel [phone]) wants to be updated daily and come back to pick him up once he is cleared. Called her on 09/08, no one answered, message box full, Called another sister who wanted to come pick him up upon d/c # On the day of discharge, patient appears much more clear, said he had a headaches, took some ibuprofen and later in the day, felt better and wanted to go. # History of psychiatric disorder, chronic Active - Patient states he used to take Zyprexa. Discontinued one year ago - psychiatric consult. -- Dr. Ivan is in to see pt. Feels pt improved on 09/08 # Possible history of seizure disorder, chronic. Active - Patient was given Keppra 1000 mg IV loading dose in the emergency room followed by a 500 mg by mouth dose. - We will continue Keppra 500 mg by mouth twice a day - We will check an MRI of the brain: NAD - We will check an EEG of the brain: result neg #Possible hx of ADHD chronic active -- Says he was on adderall until few years ago, stopped due to not wanting to go to clinic for refills # Right ankle pain -No sign of effusion, probably due to trauma Exam Vital Signs (Last) Date Time Temp Pulse Resp B/P Pulse Ox O2 Delivery O2 Flow Rate FiO2 09/09/16 05:00 36.7 62 18 118/75 96 Room Air 09/07/16 04:02 1.00 Exam General: Patient alert and oriented 3, he is cooperative. HEENT: Head is atraumatic and normocephalic. Extraocular muscles are intact. Sclera are white, anicteric. Subconjunctival mucosa is pink. Ears and nose are unremarkable. . Chest: Is clear to auscultatio. There are no rales, rhonchi, wheezes or rubs. Heart: Rate, rhythm is regular. There is no murmur, rub or gallop. Abdomen: non distended Extremities: Are symmetrical and well perfused. There is no edema, there is no cellulitis, no rash. Neurologic: Alert and oriented 3. There are no sensory or motor deficits noted. Psychiatric: Patients mood is calm and shows no sign of agitation. Test 09/05/16 22:35 09/07/16 05:30 Hold [place] Top Tube Received (Received) Salicylates Level < 3.0ug/mL (30-250) Acetaminophen Level < 15.0ug/mL Rx (10-25) White Blood Count 5.0th/mm3 (3.8-10.1) Red Blood Count 4.75mil/mm3 (4.40-5.80) Hemoglobin 14.4g/dL (13.8-17.2) Hematocrit 43.1% (41.0-50.0) Mean Corpuscular Volume 90.7fL (81-100) Mean Corpuscular Hemoglobin 30.3pg (27.0-35.0) Mean Corpuscular Hemoglobin Concent 33.4% (32.0-37.0) Red Cell Distribution Width 12.9% (12.3-15.4) Platelet Count 230bil/L (150-400) Neutrophils (%) (Auto) 40.0% (40-74) Lymphocytes (%) (Auto) 41.0% (14-46) Monocytes (%) (Auto) 8.8% (4-12) Eosinophils (%) (Auto) 9.6% (0-5) Basophils (%) (Auto) 0.4% (0-3) Sodium Level 141mEq/L (134-144) Potassium Level 4.2mEq/L (3.5-5.2) Chloride Level 105mEq/L (97-108) Carbon Dioxide Level 22mmol/L (18-29) Blood Urea Nitrogen 11mg/dL (6-20) Creatinine 0.81mg/dL (0.76-1.27) Estimat Glomerular Filtration Rate 123mL/min (>59) Glucose Level 89mg/dL (60-99) Calcium Level 9.0mg/dL (8.5-10.1) Magnesium Level 1.7mg/dL (1.6-2.6) Total Bilirubin 1.1mg/dL (0.0-1.2) Aspartate Amino Transf (AST/SGOT) 15U/L (0-50) Alanine Aminotransferase (ALT/SGPT) 11U/L (0-44) Alkaline Phosphatase 72U/L (25-150) Total Creatine Kinase 130U/L (21-232) Total Protein 6.2g/dL (6.4-8.4) Albumin 3.8g/dL (3.4-5.0) Vitamin B12 Level 507pg/mL (211-946) Folate 11.4ng/mL (>3.0) Thyroid Stimulating Hormone (TSH) 1.160uIU/mL (0.450-4.500) Microbiology Results PROCEDURE: MRI SEIZURE BRAIN WITH AND WITHOUT CONTRAST ([id number]) INDICATIONS: Encephalopathy/Seizure TECHNIQUE: Noncontrast axial T1 spin echo, axial T2 fast spin echo, sagittal and axial FLAIR, axial gradient echo, axial diffusion and ADC, coronal thin-slice T2 FSE through the brain. Optional contrast, followed by axial and coronal 3D VIBE or T1 spin echo with fat saturation sequences through the brain. COMPARISON: [facility], CT, CT BRAIN WO CON, 09/05/2016, 22:44. FINDINGS: Image quality: Partially degraded by motion artifact. CSF spaces: Ventricles are normal in size and shape. Basal cisterns are patent. No extra-axial fluid collections. Brain: No intracranial bleeds or mass effects. No abnormal intracranial enhancement. Ruvalcaba-white matter interface appears intact. Diffusion weighted images demonstrate no acute ischemic insults. Brainstem appear normal. Normal intravascular flow voids are present. The hippocampal regions appear normal and symmetric in morphology. Skull and face: Calvarial marrow signal is normal. Orbits appear normal. Sinuses: Mild maxillary sinus mucosal thickening is present bilaterally. Sinuses and mastoids are otherwise clear. IMPRESSION: No acute process. No explanation for seizure. Dictated by: Eduardo Medina M.D. on 09/07/2016 at 12:02 Discharge Medications Discharge Medications Levetiracetam (Keppra) 500 Mg Tablet 500 MG PO BID Prescribed by: HAILY COX DO Multivitamin (Multivitamins) 1 Each Capsule 1 EACH PO DAILY (Reported) As needed Clonazepam (Klonopin) 0.5 Mg Tablet 0.5 MG PO DAILY PRN PRN For Anxiety Prescribed by: HAILY COX DO Time spent 30 min Haily Cox DO Sep 09, 2016 09:24
== END 2016-09-09 13:07 | disposition home or self-care (01) ==
LOC: EDBD → SED 21:54 → EDBD 21:54 → MPC 09-06 16:30
PROVIDERS: ADMIT Family Medicine; ATTEND Family Medicine
DX: G93.40 Encephalopathy, unspecified (principal); F29 Unspecified psychosis not due to a substance or known physiological condition; G40.909 Epilepsy, unspecified, not intractable, without status epilepticus; M25.571 Pain in right ankle and joints of right foot; F17.210 Nicotine dependence, cigarettes, uncomplicated; F12.90 Cannabis use, unspecified, uncomplicated
CPT/HCPCS: 36415; 70450; 70553; 80053; 81002; 82075; 82550; 82607; 82746; 83735; 84443; 85025; 85027; 95816; 99285; A9585; G0378; G0480; J7030